=== PATIENT | female | born 1970 | race Caucasian/White ===

== ENCOUNTER → 2017-02-25 | Outpatient (CLI) | payer BC ==
--- NOTE | 2017-02-25 16:39 | MAMMOGRAPHY REPORT ---
BILATERAL DIGITAL SCREENING MAMMOGRAM TOMOSYNTHESIS WITH CAD: 02/25/2017 CLINICAL HISTORY: Routine screening. Patient has no complaints. TECHNIQUE: Breast tomosynthesis in addition to standard 2D mammography was performed. Current study was also evaluated with a Computer Aided Detection (CAD) system. COMPARISON: Comparison is made to exams dated: 01/01/2014 mammogram and 12/19/2013 mammogram - [facility]. BREAST COMPOSITION: The tissue of both breasts is heterogeneously dense, which may obscure small ma sses. FINDINGS: There are grouped calcifications seen within the right lateral breast at approximately 9: 00. Additionally, there are possible other calcifications seen within the right upper outer quadran t as well as a small cluster in the right superior posterior breast overlying the right pectoralis m uscle on the MLO view. Recommend spot magnification views for further evaluation. Additionally, th ere is a possible round partially circumscribed and partially obscured 6 mm mass seen within the rig ht lateral breast on the cc tomosynthesis images only, for which ultrasound and possible additional spot compression views are recommended. The remainder of both breasts are stable compared to the prior exam, without suspicious masses, calc ifications, or areas of architectural distortion noted. IMPRESSION: ACR BI-RADS CATEGORY 0: INCOMPLETE EVALUATION: NEED ADDITIONAL IMAGING EVALUATION Right breast calcifications and possible right breast mass, for which additional imaging evaluation is recommended. The patient will be called to schedule an appointment. Approximately 10% of breast cancers are not detected with mammography. A negative mammographic repor t should not delay biopsy if a clinically suggestive mass is present. Xena Ghosh M.D. ah/:02/25/2017 15:59:11 Confidential Investigator: Soo GOEL(Bhupinder)(M), [facility] letter sent: Addl Imaging 0 BI-RADS Code: ACR BI-RADS Category 0: Incomplete Evaluation: Need Additional Imaging Evaluation
== END | disposition home or self-care (01) ==
LOC: C.MAMM 15:11
PROVIDERS: ATTEND Obstetrics & Gynecology
DX: Z12.31 Encounter for screening mammogram for malignant neoplasm of breast (principal); R92.1 Mammographic calcification found on diagnostic imaging of breast

== ENCOUNTER → 2017-05-05 | Outpatient (CLI) | payer BC, OTHER ==
--- NOTE | 2017-05-06 13:54 | MAMMOGRAPHY REPORT ---
UNILATERAL RIGHT DIGITAL DIAGNOSTIC MAMMOGRAM TOMOSYNTHESIS AND TARGETED RIGHT ULTRASOUND: 05/05/2017 CLINICAL HISTORY: Callback from screening mammogram for right breast asymmetry and right breast calci fications. TECHNIQUE: Breast tomosynthesis in addition to standard 2D mammography was performed. Spot compress ion right CC and MLO tomosynthesis images including C views and spot magnification right cc and ML vi ews were obtained. COMPARISON: Comparison is made to exams dated: 02/25/2017 mammogram, 01/01/2014 mammogram, 01/01/2014 ult rasound, and 12/19/2013 mammogram - [facility]. BREAST COMPOSITION: The tissue of the right breast is heterogeneously dense, which may obscure small masses. FINDINGS: Spot magnification views of the right breast demonstrate a newly visualized small [address] of coarse heterogeneous calcifications in the right upper outer quadrant far posteriorly. Addit ionally, there is a small 4 mm cluster of faint amorphous calcifications in the right breast at appro ximately 9:00 middle depth, which were not clearly evident on prior exams. A few other faint punctat e benign-appearing loosely grouped calcifications are seen within the right upper outer quadrant; one of the calcifications demonstrates layering on the lateral view consistent with benign milk of calci um. As the 2 discrete clusters are not clearly evident on prior exams and given the different morpho logy of the 2 clusters, stereotactic biopsy of both clusters is recommended. The previously described nodular asymmetry seen within the right lateral breast on the cc view does n ot clearly persist on the spot compression views. Targeted ultrasound was performed of the right lat eral breast in the region of the mammographic asymmetry. An oval anechoic benign simple cyst measuri ng 6 x 7 mm is seen within the right breast at 10:00, 6 cm from the nipple, with an adjacent smaller anechoic benign simple cyst measuring 3 x 2 mm also noted. In the right breast at 10:00, 5 cm from t he nipple, there are 2 adjacent anechoic benign simple cysts measuring 2 mm each. No suspicious esmer d masses were seen on ultrasound. The larger cyst in the right 10:00 breast likely corresponds with the mammographic asymmetry. IMPRESSION: ACR BI-RADS CATEGORY 4: SUSPICIOUS, TARGETED ULTRASOUND ACR BI-RADS CATEGORY 4: SUSPICIO US 1. New small 4 mm cluster of coarse heterogeneous calcifications in the right upper outer quadrant p osteriorly. The calcifications are indeterminate and stereotactic biopsy is recommended for further evaluation. The calcifications may be too far posterior to biopsy via stereotactic guidance; if the calcifications cannot be biopsied via stereotactic guidance, surgical biopsy may be needed. 2. Newly visualized 4 mm cluster of faint amorphous calcifications in the right upper outer quadrant middle depth. The calcifications are indeterminate and stereotactic biopsy is recommended. 3. A few small benign cysts seen within the right upper outer quadrant on ultrasound, one of which l ikely corresponds with the mammographic asymmetry. Other loosely grouped benign-appearing calcificat ions are seen within the right upper outer quadrant. Pending benign pathology results of the stereot actic biopsies, recommend short interval follow-up mammograms and possible ultrasound of the right br east in 6 months to reevaluate the right breast asymmetry and loosely grouped calcifications. A phone call was made to the physician's office to confirm faxed results were received. The patient has been verbally notified of the results. She tentatively scheduled the biopsies before leaving the department. Approximately 10% of breast cancers are not detected with mammography. A negative mammographic report should not delay biopsy if a clinically suggestive mass is present. Xena Ghosh M.D. ah/:05/05/2017 15:01:21 Sumo Wrestler: Karine GOEL(Bhupinder)(Paola), [facility] letter sent: Abnormal 4/5 BI-RADS Code: ACR BI-RADS Category 4: Suspicious Ultrasound BI-RADS: ACR BI-RADS Category 4: Suspici ous
== END | disposition home or self-care (01) ==
LOC: C.MAMM 13:37
PROVIDERS: ATTEND Obstetrics & Gynecology
DX: R92.0 Mammographic microcalcification found on diagnostic imaging of breast (principal); N64.89 Other specified disorders of breast; N60.11 Diffuse cystic mastopathy of right breast

== ENCOUNTER → 2017-05-13 | Outpatient (CLI) | payer BC, OTHER ==
--- NOTE | 2017-05-13 08:33 | Discharge Instructions ---
Discharge Instructions Procedure Procedure Date: May 13, 2017. Reason for visit: Right Calcs X 2. Discharge Discharge Date: May 13, 2017. Discharge Diagnosis: status post breast biopsy Instructions Activity Recommendations: Additional Limitations (see below) Return to School/Work: no limitations Recommended Home Diet: No Limitations Provider Instructions: ACTIVITY RECOMMENDATIONS: * No lifting, pushing, pulling or exercising the affected side for three days. RETURN TO SCHOOL/WORK: * You may return to work/school after the procedure, but do not perform any strenuous activities for 24 to 48 hours. MEDICATIONS: * Tylenol (two 325 mg) every four to six hours if needed for mild pain (if not allergic to Tylenol). DIET: * Resume previous diet. SPECIAL CARE INSTRUCTIONS: * Keep biopsy site dry for 24 hours. May shower after 24 hours, but do not soak (bathe) incision. * May remove Tegaderm (plastic patch) tomorrow AFTER showering. * Leave the steri-strips on for one week. Allow the steri-strips to fall off by themselves. If not off after one week, you may remove them. You may place a Bandaid crosswise over the strips, if desired. * Apply ice 10 minutes on and 10 minutes off as needed. * Wear a bra at bedtime to sleep more comfortably for 2-3 days. * Your referring physician should have the results after approximately 5 to 7 business days. * Call for unusual bleeding, fever, drainage, etc or if you have any questions call during normal business hours or after hours call Dr Ghosh, [phone]. FOLLOW UP VISIT: Follow-up with Referring Physician as scheduled. [facility] Recommendations: Call your doctor if: * Temperature above 101 degrees * Pain not relieved by pain medicine ordered * There is increased drainage or redness from any incision * You have any unanswered questions or concerns. Your Doctors Instructions noted above were prepared by provider Xena Ghosh. Patient Signature Section: Patient Instructions Signature Page Maritza Fatoumata Patient (or Guardian) Signature/Date: I have read and understand the instructions given to me by my caregivers. Caregiver/RN/Doctor Signature/Date: The above-named patient and/or guardian has received patient instructions on this date. + Original Patient Signature Page (only) stays with chart. Please make copy for patient.
--- NOTE | 2017-05-13 13:27 | MAMMOGRAPHY REPORT ---
UNILATERAL RIGHT DIGITAL DIAGNOSTIC MAMMOGRAM: 05/13/2017 CLINICAL HISTORY: Status post bilateral stereotactic biopsies. TECHNIQUE: Right CC and LM and XCCL views were obtained. COMPARISON: Comparison is made to exams dated: 05/13/2017 stereotactic biopsy, 05/05/2017 mammogram, mammogram, and 01/01/2014 mammogram - [facility]. BREAST COMPOSITION: The tissue of the right breast is heterogeneously dense, which may obscure small masses. FINDINGS: A preprocedural right LM view was obtained for biopsy pending purposes. Postprocedural ri ght CC, XCCL, and LM views were obtained, which shows two new biopsy marker clips status post stereot actic biopsy of 2 clusters of calcifications in the right upper outer quadrant. The biopsy clip from biopsy of the more anterior and inferior cluster of calcifications demonstrates probable mild medial migration from the biopsy site of approximately 1.9 cm, likely due to accordion effect. There is no migration of the more superior and posterior biopsy marker clip. No significant postbiopsy hematoma is seen. IMPRESSION: POST PROCEDURE IMAGING FOR MARKER PLACEMENT New biopsy marker clips status post stereotactic biopsy of the right breast 2. Pathology results ar e pending. Pending benign pathology results, recommend short interval follow-up mammograms and possi ble ultrasound of the right breast in 6 months to reevaluate the right breast asymmetry and loosely g rouped calcifications seen during the diagnostic workup. Approximately 10% of breast cancers are not detected with mammography. A negative mammographic report should not delay biopsy if a clinically suggestive mass is present. Xena Ghosh M.D. ah/:05/13/2017 09:29:[address] Magistrate: Soo GOEL(Bhupinder)(M), [facility] BI-RADS Code: Post Procedure Imaging For Marker Placement
--- NOTE | 2017-05-13 13:27 | MAMMOGRAPHY REPORT ---
THIS REPORT HAS BEEN AMENDED. STEREOTACTIC GUIDED BIOPSY RIGHT BREAST: 05/13/2017 CLINICAL HISTORY: Indeterminate calcifications in the right upper outer quadrant posteriorly. PATIENT CONSENT: The procedure, risks, benefits, and alternatives of stereotactic biopsy with clip pl acement were discussed with the patient, and verbal and written consent was obtained. A timeout was performed immediately prior to the procedure. PROCEDURE DESCRIPTION: With stereotactic guidance, aseptic technique, and lidocaine as a local anesth etic (1% lidocaine to anesthetize the skin and 1% lidocaine with epinephrine to anesthetize the deepe r tissues), the calcifications of concern in the right upper outer quadrant posterior and superior we re sampled multiple times with a 9-gauge vacuum-assisted biopsy needle ([employer]). The path of ap proach was lateral, with her arm placed through the hole. The specimen radiograph demonstrates calci fications to be present in the samples. A metallic marker clip was placed at the biopsy site. This was confirmed on postprocedure mammograms. Direct pressure was applied at the biopsy site and hemost asis was readily achieved. The patient tolerated the procedure without complication. She was given wound care instructions. COMPARISON: Comparison is made to exams dated: 05/05/2017 mammogram, 05/13/2017 stereotactic biopsy, 05/05/2017 ultrasound, 02/25/2017 mammogram, and 01/01/2014 mammogram - [facility]. IMPRESSION: STEREOTACTIC GUIDED BIOPSY Stereotactic guided biopsy of indeterminate calcifications in the right upper outer quadrant posterio rly, with clip placement. The patient will receive pathology results from her referring provider. Xena Ghosh M.D. ah/:05/13/2017 09:08:04 Business Information Analyst: Soo Sampson RT(R)(M), [facility] AMENDMENT: 05/25/2017 Xena Ghosh M.D. The pathology from right breast stereotactic 2 was reviewed on 05/17/2017. The pathology of the righ t upper-outer quadrant calcifications (middle depth anterior cluster) yielded columnar cell hyperplas ia with associated microcalcifications, which is benign and concordant with the imaging findings. Th e pathology from the right upper outer quadrant calcifications (posterior and superior) yielded a muc inous lesion with associated microcalcifications and fibrocystic change. Given the presence of a muc inous lesion, recommend surgical consultation.
--- NOTE | 2017-05-13 13:27 | MAMMOGRAPHY REPORT ---
THIS REPORT HAS BEEN AMENDED. STEREOTACTIC GUIDED BIOPSY RIGHT BREAST: 05/13/2017 CLINICAL HISTORY: Indeterminate calcifications in the right upper outer quadrant middle depth.. PATIENT CONSENT: The procedure, risks, benefits, and alternatives of stereotactic biopsy with clip pl acement were discussed with the patient, and verbal and written consent was obtained. A timeout was performed immediately prior to the procedure. PROCEDURE DESCRIPTION: With stereotactic guidance, aseptic technique, and lidocaine as a local anesth etic (1% lidocaine to anesthetize the skin and 1% lidocaine with epinephrine to anesthetize the deepe r tissues), the calcifications of concern in the right upper outer quadrant middle depth were sampled multiple times with a 9-gauge vacuum-assisted biopsy needle ([email or web address]). The path of approach was lateral. The specimen radiograph demonstrates calcifications to be present in the samples. The chiki ples containing calcifications (labeled "A") were from the samples without calcifications ( labeled "B"). A metallic marker clip was placed at the biopsy site. This was confirmed on postproce dure mammograms. Direct pressure was applied at the biopsy site and hemostasis was readily achieved. The patient tolerated the procedure without complication. She was given wound care instructions. COMPARISON: Comparison is made to exams dated: 05/05/2017 mammogram, 05/05/2017 ultrasound, 02/25/2017 ma mmogram, 01/01/2014 mammogram, 01/01/2014 ultrasound, and 12/19/2013 mammogram - [facility]. IMPRESSION: STEREOTACTIC GUIDED BIOPSY Stereotactic guided biopsy of indeterminate calcifications in the right upper outer quadrant middle d epth, with clip placement. The patient will receive pathology results from her referring provider. Pending benign pathology results, recommend short interval follow-up mammograms and possible ultrasou nd of the right breast in 6 months to reevaluate the right breast asymmetry and loosely grouped calci fications seen during the diagnostic workup. Xena Ghosh M.D. ah/:05/13/2017 09:31:04 Crown Wheel Assembler: Soo MALIK)(Paola), [facility] AMENDMENT: 05/25/2017 Xena Ghosh M.D. The pathology from right breast stereotactic 2 was reviewed on 05/17/2017. The pathology of the righ t upper-outer quadrant calcifications (middle depth anterior cluster) yielded columnar cell hyperplas ia with associated microcalcifications, which is benign and concordant with the imaging findings. Th e pathology from the right upper outer quadrant calcifications (posterior and superior) yielded a muc inous lesion with associated microcalcifications and fibrocystic change. Given the presence of a muc inous lesion, recommend surgical consultation.
== END | disposition home or self-care (01) ==
LOC: C.MAMM 07:50
PROVIDERS: ATTEND Obstetrics & Gynecology
DX: R92.0 Mammographic microcalcification found on diagnostic imaging of breast (principal); N62 Hypertrophy of breast; N60.11 Diffuse cystic mastopathy of right breast

== ENCOUNTER → 2017-12-26 | Outpatient (CLI) | payer OTHER | END | disposition home or self-care (01) | LOC: C.PAPS 16:08 | PROVIDERS: ATTEND Obstetrics & Gynecology | DX: Z12.4 Encounter for screening for malignant neoplasm of cervix (principal); E28.319 Asymptomatic premature menopause ==

== ENCOUNTER → 2017-12-28 | Outpatient (CLI) | payer OTHER ==
--- NOTE | 2017-12-28 15:23 | MAMMOGRAPHY REPORT ---
UNILATERAL RIGHT DIGITAL DIAGNOSTIC MAMMOGRAM TOMOSYNTHESIS WITH CAD: 12/28/2017 CLINICAL HISTORY: Status post stereotactic biopsy of right upper outer quadrant posterior calcificati ons which yielded a mucinous lesion; the patient underwent surgical excision which yielded benign pat hology on excision. She also underwent stereotactic biopsy of additional right breast calcifications which yielded benign pathology. The patient presents for short interval follow-up. TECHNIQUE: Breast tomosynthesis in addition to standard 2D mammography was performed. Current study was also evaluated with a Computer Aided Detection (CAD) system. Right CC and MLO 2-D and tomosynthe sis images and spot magnification right X CCL and ML views were obtained. COMPARISON: Comparison is made to exams dated: 05/13/2017 stereotactic biopsy, 05/13/2017 mammogram, mammogram, 05/05/2017 ultrasound, 02/25/2017 mammogram, and 01/01/2014 mammogram - [facility]. BREAST COMPOSITION: The tissue of the right breast is heterogeneously dense, which may obscure small masses. FINDINGS: There are expected post surgical changes in the right upper outer quadrant posteriorly fro m prior benign surgical excision, with mild density and architectural distortion at the surgical bed. A linear scar marker denotes a scar on the right upper outer breast. A biopsy marker clip is noted within the right central breast from prior benign stereotactic biopsy. Spot magnification views of the right breast demonstrate a few loosely grouped faint punctate benign-appearing calcifications in the right upper outer quadrant middle depth, one of which clearly demonstrates layering and is consis tent with benign milk of calcium. The calcifications are stable on spot magnification views from Apr and are considered benign given the stability and morphology. Small partially circumscribed m ass within the right lateral posterior breast on the cc view is also stable and is felt to represent a cyst, with multiple cysts seen within the right lateral breast on the prior ultrasound exam. The remainder of the right breast is stable compared to prior exams, without suspicious masses, calci fications, or areas of architectural distortion noted. IMPRESSION: ACR BI-RADS CATEGORY 2: BENIGN There is no mammographic evidence of malignancy in the right breast. Return to annual mammogram scree michelle schedule is recommended, due February 2018. The patient has been verbally notified of the results. Approximately 10% of breast cancers are not detected with mammography. A negative mammographic report should not delay biopsy if a clinically suggestive mass is present. Xena Ghosh M.D. ah/:12/28/2017 11:06:37 Process Improvement Specialist: Venus GOEL(R)(M), [facility] letter sent: Normal 1/2 BI-RADS Code: ACR BI-RADS Category 2: Benign
== END | disposition home or self-care (01) ==
LOC: C.MAMM 10:37
PROVIDERS: ATTEND Obstetrics & Gynecology
DX: Z09 Encounter for follow-up examination after completed treatment for conditions other than malignant neoplasm (principal)

== ENCOUNTER → 2018-02-28 | Outpatient (CLI) | payer OTHER ==
--- NOTE | 2018-03-01 07:56 | MAMMOGRAPHY REPORT ---
BILATERAL DIGITAL SCREENING MAMMOGRAM TOMOSYNTHESIS WITH CAD: 02/28/2018 CLINICAL HISTORY: Routine screening. TECHNIQUE: Breast tomosynthesis in addition to standard 2D mammography was performed. Current study was also evaluated with a Computer Aided Detection (CAD) system. COMPARISON: Comparison is made to exams dated: 12/28/2017 mammogram, 02/25/2017 mammogram, 12/19/2013 m ammogram, 01/01/2014 mammogram, 05/05/2017 mammogram, and 05/13/2017 mammogram - [facility]. BREAST COMPOSITION: The tissue of both breasts is heterogeneously dense, which may obscure small mas ses. FINDINGS: There is a stable dumbbell-shaped biopsy marker clip in the central right breast. A linear scar marker overlies the right upper outer quadrant posteriorly, denoting the area of prior excision which yielded benign pathology results on final surgical pathology. No new suspicious mass, archite ctural distortion or cluster of microcalcifications is seen. IMPRESSION: ACR BI-RADS CATEGORY 1: NEGATIVE There is no mammographic evidence of malignancy. A 1 year screening mammogram is recommended. The pa tient will receive written notification of the results. Approximately 10% of breast cancers are not detected with mammography. A negative mammographic report should not delay biopsy if a clinically suggestive mass is present. Graciela Mccann M.D. ay/:02/28/2018 16:11:53 Cover Assembler: Venus MALIK)(Paola), [facility] letter sent: Normal 1/2 BI-RADS Code: ACR BI-RADS Category 1: Negative
== END | disposition home or self-care (01) ==
LOC: C.MAMM 15:37
PROVIDERS: ATTEND Obstetrics & Gynecology
DX: Z12.31 Encounter for screening mammogram for malignant neoplasm of breast (principal)

== ENCOUNTER → 2018-03-24 | Outpatient (CLI) | payer OTHER | END | disposition home or self-care (01) | LOC: C.LAB 07:27 | PROVIDERS: ATTEND Internal Medicine Endocrinology, Diabetes & Metabolism | DX: E06.3 Autoimmune thyroiditis (principal); Z86.39 Personal history of other endocrine, nutritional and metabolic disease; E55.9 Vitamin D deficiency, unspecified ==

== ENCOUNTER 2018-03-31 12:18 | Emergency (ER) | payer OTHER ==
[~2018-03-31] VITALS: Ht 165.1 cm; Wt 79.2 kg
[2018-03-31 12:23] VITALS: Ht 165.1 cm; Wt 79.2 kg
[2018-03-31] MEDS ORDERED: DSY/150 PO (13:25)
[2018-03-31] MEDS ORDERED: ATV/1 PO (13:25)
[2018-03-31] MEDS ORDERED: FOLI800T PO (13:25)
[2018-03-31] MEDS ORDERED: BUPR100T8 PO (13:25)
[2018-03-31] MEDS ORDERED: FERR1TAB13 PO (13:25)
[2018-03-31] MEDS ORDERED: SERT-234 PO (13:25)
[2018-03-31] MEDS ORDERED: CHOL1000 PO (13:25)
[2018-03-31] MEDS ORDERED: MULT-506 PO (13:25)
[2018-03-31] MEDS ORDERED: PROP10TA7 PO (13:25)
[2018-03-31] MEDS ORDERED: OMEG10007 PO (13:25)
[2018-03-31] MEDS ORDERED: MEDR2.5T PO (13:25)
[2018-03-31] MEDS ORDERED: ZOLP10TA PO (13:25)
[2018-03-31] MEDS ORDERED: EST1 PO (13:25)
[2018-03-31] MEDS ORDERED: DEXAMETHASONE INJ 10 MG in SYRINGE 0 ML IV ONE (13:30)
[2018-03-31] MEDS ORDERED: DEXAMETHASONE **PF** INJ 10 MG/ML VIAL ONE (13:51)
[2018-03-31 14:46] VITALS: BP 110/73; PULSE 57; TEMP 36.7; O2SAT 97
[2018-03-31] MEDS ORDERED: PRED20TA2 PO (14:51)
--- NOTE | 2018-03-31 17:35 | EMERGENCY ROOM VISIT NOTE ---
ED Visit Note First contact with patient: 12:27 Chief Complaint: Severe itching. History of Present Illness: Ms. Ham is a 47-year-old white female who ambulates into the ED complaining of exacerbation of her pruritus. Patient reports she has a history of chronic pruritus that welts and flares. She is currently under the care of an transportation engineering technician in [place], Dr. Mitchell. She has been on multiple medications included multiple doses of prednisone, Benadryl, hydralazine and others and has never had full relief of her symptoms. She goes on to report that since the heat started earlier this week, 3 days ago she started having increasing itching and she has not been able to have any relief from her symptoms. She reports this is "driving me crazy", she has tried multiple medications without relief. She denies any associated symptoms except for welding and flaring when she itches. It is most pronounced around the hips, the genital areas and the extremities avoiding the hands. She denies any associated symptoms including fevers, chills, sweats, chest pain, shortness of breath, lip/tongue swelling, sensations of throat swelling, abdominal pain, nausea, vomiting. Review of Systems: As noted above in history of present illness. 8 body systems were reviewed and found to be negative as noted above. Past Medical History: As previously noted, hypothyroidism, depression. Current Medications: Medications Dose Route/Sig Max Daily Dose Days Date Category Vitamin D3 (Cholecalciferol) 1,000 Unit Tab 2 Tab PO DAILY 90 03/31/18 Reported Trazodone HCl Unknown Strength Tab 1-2 Tab PO PRN 03/31/18 Reported Zoloft (Sertraline HCl) 100 Mg Tab 100 Mg PO BID 03/31/18 Reported Inderal (Propranolol Hcl) 10 Mg Tab 20 Mg PO BID 03/31/18 Reported Multivitamin (Multivitamins) Tab 1 Tab PO DAILY 03/31/18 Reported Provera (Medroxyprogesterone Acetate) 2.5 Mg Tab 2.5 Mg PO DAILY 03/31/18 Reported Folic Acid 800 Mcg Tab 800 Mcg PO BID 03/31/18 Reported [place]ao-3 (Fish Oil) 1 Ea Cap 1 Cap PO DAILY 03/31/18 Reported Kp Ferrous Sulfate (Ferrous Sulfate) 325 Mg Tab 325 Mg PO BID 30 03/31/18 Reported Estradiol 1 Mg Tab 1 Mg PO DAILY 03/31/18 Reported Wellbutrin Sr (Bupropion HCl) 100 Mg Ertab 100 Mg PO BID 03/31/18 Reported Ativan (Lorazepam) 1 Mg Tab 1 Mg PO TID PRN 03/31/18 Reported Ambien (Zolpidem Tartrate) 10 Mg Tab 10 Mg PO HS 03/31/18 Reported Allergies to Medications: Penicillin, sulfa Social History: Patient is currently employed; she feels safe in her home environment; she denies tobacco and alcohol use. Physical Examination: Vital Signs: Date Time Temp Pulse Resp B/P (MAP) Pulse Ox O2 Delivery O2 Flow Rate FiO2 03/31/18 14:46 36.7 57 18 110/73 97 03/31/18 12:23 36.7 61 18 110/73 96 Room Air GENERAL: 47-year-old female in mild to moderate distress due to symptoms, nontoxic-appearing, afebrile and hemodynamically stable. PSYCHOLOGICAL: Patient is very anxious and tearful. She seems to be emotionally distraught due to her ongoing symptoms that she feels she cannot control. She expresses feelings of not being able to control her environment specifically her symptoms. She denies suicidal or homicidal ideation. She does not appear to have any delusional thought processes. She is not responding to any internal stimuli. She does report she is talked about her symptoms with both her psychologist and psychiatrist. NEUROLOGICAL: Awake, alert and oriented to person, place and time. Answering questions appropriately and following commands. Normal gait. Good hand eye coordination. No focal motor sensory deficits. SKIN: Warm, dry and pink. Patient has multiple excoriated lesions on her body that are scabbed over. None of these lesions appear infected or cellulitic. Her skin does flare with scratching but does not whelped. HEENT: Atraumatic and normocephalic. PERRLA. Sclera white and conjunctiva pink. No drainage from naris. Oral cavity moist and pink. No lip or tongue swelling. No posterior pharyngeal erythema or edema. Airway is patent. Speech is normal and clear. No auditory or ausculatory stridor. THORAX: Lungs sounds are clear to auscultation and equal bilaterally with symmetrical chest wall. No wheezing, rales or rhonchi. No crepitus, tenderness , subcutaneous air or deformities noted. No increased respiratory effort or rate. HEART: Regular rate and rhythm. No gallops, rubs or murmurs are appreciated. ABDOMEN: Flat, soft and nontender. Positive bowel sounds in all quadrants. No guarding, rigidity or organomegaly. EXTREMITIES: Moves all extremities well on command and with purpose. All distal neurovascular statuses are intact and equal bilaterally. No calf tenderness or cords. ED Course: Patient is assessed as noted above. Patient's medication list was reviewed. Patient's case was reviewed with Dr. Posada; we agreed on diagnostic approach, treatment, disposition and plan. Patient's case was consulted with her transportation engineering technician in [place], I was able to speak to the on-call physician kindergarten assistant, Ms. Sexton, she recommended a dose of steroids and then 30 mg of prednisone every day with office follow-up visit on Tuesday. An IV lock was initiated and patient received 10 mg of Decadron IV and she took her own antihistamines. Because of her severe upset ental status I did have case management go and speak to the patient they felt it was safe for her to go home. Patient was educated about today's findings and instructed on her treatment plan ; she verbalized understanding and agreement with this plan. Clinical Impression: Pruritus exacerbation Disposition: Patient discharged home in stable condition; prior to departure she was reassessed and subjectively reported she was feeling slightly better and continued to deny any airway issues. Plan: Patient was encouraged to continue her medications as prescribed. Patient was prescribed 30 mg of prednisone once a day for the next 5 days. Patient was encouraged to follow-up with her transportation engineering technician office on Tuesday for definitive care and treatment. Patient was encouraged return to the ED for worsening symptoms, fevers, airway/ tongue/lip swelling or any new/concerning symptoms.
== END 2018-03-31 14:48 | disposition home or self-care (01) ==
LOC: C.EDB 12:19
DX: L29.9 Pruritus, unspecified (principal); F48.9 Nonpsychotic mental disorder, unspecified; F32.9 Major depressive disorder, single episode, unspecified; E03.9 Hypothyroidism, unspecified